=== PATIENT | female | born 1955 | race Caucasian/White ===

== ENCOUNTER 2024-07-26 15:14 | Emergency (ER) | payer OTHER ==
[~2024-07-26] VITALS: Ht 162.6 cm; Wt 64.4 kg
[~2024-07-26 15:14] MED LIST: ACET500T99 PO; DIA250 PO; DOCU-299 PO; GABA100C PO; LEVE750T3 PO; MAG-27 PO; MULT-1640 PO; OLAN7.5T1 PO; SENN-72 PO; TUBE5SOL12 ID
[2024-07-26 15:28] VITALS: BP 115/77; PULSE 75; RESP 16; TEMP 97.8; O2SAT 94
[2024-07-26] MEDS: MORPHINE SULFATE 4 MG/ML SYR IM ONE (16:14)
[2024-07-26] MEDS ORDERED: ACET-8905 PO (16:35)
[2024-07-26 17:38] VITALS: BP 136/95; PULSE 75; RESP 16; TEMP 97.8; O2SAT 95
== END 2024-07-26 17:38 | disposition home or self-care (01) ==
LOC: MED 15:14
DX: M25.561 Pain in right knee (principal); M25.562 Pain in left knee; I11.0 Hypertensive heart disease with heart failure; I50.9 Heart failure, unspecified; F17.210 Nicotine dependence, cigarettes, uncomplicated; Z87.448 Personal history of other diseases of urinary system; Z86.69 Personal history of other diseases of the nervous system and sense organs; Z98.890 Other specified postprocedural states; Z79.899 Other long term (current) drug therapy; Z91.018 Allergy to other foods; Z88.6 Allergy status to analgesic agent
CPT/HCPCS: 96372; 99283; J2270